=== PATIENT | male | born 1990 | race Caucasian/White ===

== ENCOUNTER 2017-12-10 20:42 | Emergency (ER) | payer OTHER ==
[~2017-12-10] VITALS: Ht 162.6 cm; Wt 82.2 kg
[2017-12-10 20:58] VITALS: Ht 162.6 cm; Wt 82.2 kg
[2017-12-10 22:34] VITALS: BP 138/72
== END 2017-12-10 22:34 | disposition home or self-care (01) ==
LOC: ED 20:42
DX: F41.9 Anxiety disorder, unspecified (principal)

== ENCOUNTER 2019-05-05 10:11 | Emergency (ER) | payer OTHER ==
[~2019-05-05] VITALS: Ht 165.1 cm; Wt 67.1 kg
[2019-05-05 10:25] VITALS: Ht 165.1 cm; Wt 67.1 kg
[2019-05-05 11:18] LABS: BASOPHIL % 0.5 % (0-2); PLATELET COUNT 234 x10^3mcL (130-400); RED CELL DISTRIBUTION WIDTH 12.9 % (11.5-14.5)
[2019-05-05 11:29] LABS: CALCIUM 9.1 mg/dL (8.5-10.1); CARBON DIOXIDE 26.4 mmol/L (21-32); CHLORIDE SERUM 100 mmol/L (98-107); CREATININE SERUM 0.8 mg/dL (0.7-1.3); GFR1 > 60 mL/min; GLUCOSE SERUM 119 mg/dL (74-106); POTASSIUM SERUM 3.7 mmol/L (3.5-5.1); SODIUM SERUM 136 mmol/L (136-145)
[2019-05-05 11:33] LABS: ALBUMIN 4.4 g/dL (3.4-5.0); ALKALINE PHOSPHATASE 116 U/L (46-116); ALT/SGPT 109 U/L (16-63); AST/SGOT 63 U/L (15-37); BILIRUBIN TOTAL 0.6 mg/dL (0.20-1.00)
[2019-05-05 11:34] LABS: TOTAL PROTEIN, SERUM 8.4 g/dL (6.4-8.2)
[2019-05-05 11:41] LABS: T3 TOTAL 0.95 ng/mL
[2019-05-05 11:44] LABS: FREE T4 0.84 ng/dL (0.76-1.46); FREE THYROXINE INDEX 2.2 ug/dL (1.4-4.5); T4(THYROXINE) 7.1 ug/dL (4.7-13.3)
[2019-05-05 11:57] LABS: AMPHETAMINE QUAL UR NONE DETECTED (See below)
[2019-05-05 13:02] VITALS: BP 138/84
== END 2019-05-05 13:02 | disposition home or self-care (01) ==
LOC: ED 10:11
PROVIDERS: Emergency Medicine
DX: R00.2 Palpitations (principal); F41.9 Anxiety disorder, unspecified; R42 Dizziness and giddiness; F10.239 Alcohol dependence with withdrawal, unspecified; Y90.0 Blood alcohol level of less than 20 mg/100 ml
CPT/HCPCS: 36415; 84439; G0480; Q0092

== ENCOUNTER 2020-04-16 09:42 | Emergency (ER) | payer OTHER ==
[~2020-04-16] VITALS: Ht 162.6 cm; Wt 81.2 kg
[2020-04-16 09:49] VITALS: Ht 162.6 cm; Wt 81.2 kg
[2020-04-16 10:22] LABS: BASOPHIL % 0.8 % (0.2-1.5); PLATELET COUNT 242 x10^3mcL (152-348)
[2020-04-16 10:28] LABS: microscopic required? NO
[2020-04-16 10:32] LABS: urine erythrocyte NEGATIVE (NEGATIVE)
[2020-04-16 10:32] LABS: CALCIUM 9.2 mg/dL (8.5-10.1); CARBON DIOXIDE 29.8 mmol/L (21-32); CHLORIDE SERUM 104 mmol/L (98-107); CREATININE SERUM 0.8 mg/dL (0.7-1.3); GFR1 > 60 mL/min; GLUCOSE SERUM 104 mg/dL (74-106); POTASSIUM SERUM 3.6 mmol/L (3.5-5.1); SODIUM SERUM 140 mmol/L (136-145)
[2020-04-16 10:39] LABS: ALBUMIN 4.5 g/dL (3.4-5.0); ALKALINE PHOSPHATASE 90 U/L (46-116); ALT/SGPT 56 U/L (16-63); AST/SGOT 20 U/L (15-37); BILIRUBIN TOTAL 0.68 mg/dL (0.20-1.00); LIPASE 125 IU/L (73-393); TOTAL PROTEIN, SERUM 7.9 g/dL (6.4-8.2)
[2020-04-16] MEDS ORDERED: PEPCID AC20 M2 PO (11:01)
[2020-04-16] MEDS ORDERED: PROBIOTIC BLEN1 EAC1 PO (11:01)
[2020-04-16 11:16] VITALS: BP 124/83
== END 2020-04-16 11:15 | disposition home or self-care (01) ==
LOC: ED 09:42
PROVIDERS: Emergency Medicine
DX: R10.11 Right upper quadrant pain (principal)